=== PATIENT | female | born 1955 | race Two or more races ===

== ENCOUNTER → 2017-03-19 | Emergency (ER) | payer OTHER ==
[~2017-03-19] MED LIST: ACETAMINOPHEN 325 MG TABLET (FP) ONE; ACETAMINOPHEN 325 MG TABLET (FP) PO ONE; METOCLOPRAMIDE HCL 10 MG TABLET (FP) PO ONE
[2017-03-19 14:26] VITALS: BP 139/96; PULSE 74; TEMP 98.2; BMI 26.2
--- NOTE | 2017-03-19 15:11 | PDOC ---
History of Present Illness - General History Source: Patient Exam Limitations: No Limitations - History of Present Illness Initial Comments: 03/19/17 15:48 <Linnea Romero - Last Filed: 03/19/17 15:48> - General History Source: Patient Exam Limitations: No Limitations - History of Present Illness Initial Comments: 03/19/17 17:39 The patient is a 62-year-old woman with a significant past medical history of hypercholesterolemia who presents to the emergency department via walk-in with complaints of a subconjunctival hemorrhage. Patient stated that she woke up during the middle of the evening, two days ago, at approximately 22:30 to have a bladder movement and experienced mild right sided lateral eye pain. She did not think too much of it and asked her to place some eye drops. Her noted that the patient had experienced subconjunctival bleeding. Patient admits she was not too impressed, as she experienced the same symptoms approximately 7 years ago. Patient recalls noting associated symptoms of a frontal pounding headache that initially was intermittent but this morning it has remained constant with a rated 3/10 in severity, thus presenting to the ED. She had a similar headache last night that she took tylenol for with resolution. She does not provide any exacerbating.alleviating factors. She is not on any blood thinners. No eye pain or vision changes. No recent head injury lightheadedness, palpitations, dizziness, visual changes, No recent fever, chills, generalized weakness. No chest pain, cough shortness of breath. No abdominal pain, nausea, vomiting, diarrhea, constipation. No urinary complaints. Allergies: No Known Drug Allergies. Past Surgical History: None reported Social History: Current everyday cigarette smoker (approximately 3 cigarettes/ day). No EtOH and recreational drug use. Primary Care Physician: Dr. Umesh Tavares <Claus Krishnamurthy - Last Filed: 03/20/17 07:59> - General Chief Complaint: Eye Problem Stated Complaint: EYE PROBLEM/HEADACHE Time Seen by Provider: 03/19/17 14:54 Past History <Linnea Romero - Last Filed: 03/19/17 15:48> - Past Medical History Hypercholesterolemia: Yes - Psycho/Social/Smoking Cessation Hx Suicidal Ideation: No Smoking History: Current every day smoker Number of Cigarettes Smoked Daily: 3 Information on smoking cessation initiated: No <YessyClaus - Last Filed: 03/20/17 07:59> - Past Medical History Allergies/Adverse Reactions: Allergies Allergy/AdvReac Type Severity Reaction Status Date / Time No Known Allergies Allergy Verified 03/19/17 14:24 Home Medications: Ambulatory Orders NK [No Known Home Medication] 03/19/17 Review of Systems - Review of Systems Able to Perform ROS?: Yes Comments:: 03/19/17 15:49 <Linnea Romero - Last Filed: 03/19/17 15:48> - Review of Systems Able to Perform ROS?: Yes Comments:: 03/19/17 17:39 CONSTITUTIONAL: No reported: Fever, Chills, Diaphoresis, Generalized Weakness, Malaise, Loss of Appetite HEENT: Reported: Subconjuntival hemorrhage. No reported: Rhinorrhea, Nasal Congestion, Throat Pain, Throat Swelling, Difficulty Swallowing, Mouth Swelling, Ear Pain, Eye Pain, Visual Changes CARDIOVASCULAR: No reported: Chest Pain, Syncope, Palpitations, Irregular Heart Rate, Lightheadedness, Peripheral Edema RESPIRATORY: No reported: Cough, Shortness of Breath, SOB with Exertion, Orthopnea, Wheezing , Stridor, Hemoptysis GASTROINTESTINAL: No reported: Abdominal pain, Abdominal Distension, Nausea, Vomiting, Diarrhea, Constipation, Melena, Hematochezia GENITOURINARY: No reported: Dysuria, Frequency, Urgency, Hesitancy, Flank Pain, Genital Pain MUSCULOSKELETAL: No reported: Myalgia, Arthralgia, Joint Swelling, Back pain, Neck Pain SKIN: No reported: Rash, Itching, Pallor HEMEATOLOGIC/IMMUNOLOGIC: No reported: Easy Bleeding, Easy Bruising, Lymphadenopathy, Frequent infections ENDOCRINE: No reported: Unexplained Weight Gain, Unexplained Weight Loss, Heat Intolerance , Cold Intolerance NEUROLOGIC: Reported: Headache. No reported: Focal Weakness, Paresthesias, Vertigo, Lightheadedness, Unsteady Gait, Seizure, Mental Status Changes, Incontinence PSYCHIATRIC: No reported: Anxiety, Depression <Claus Krishnamurthy - Last Filed: 03/20/17 07:59> *Physical Exam - Vital Signs Last Vital Signs Temp Pulse Resp BP Pulse Ox 98.2 F 74 18 139/96 99 03/19/17 14:24 03/19/17 14:24 03/19/17 14:24 03/19/17 14:24 03/19/17 14:24 - Physical Exam Comments: 03/19/17 15:49 <Linnea Romero - Last Filed: 03/19/17 15:48> - Vital Signs Last Vital Signs Temp Pulse Resp BP Pulse Ox 98.2 F 74 18 139/96 99 03/19/17 14:24 03/19/17 14:24 03/19/17 14:24 03/19/17 14:24 03/19/17 14:24 - Physical Exam Comments: 03/19/17 17:39 GENERAL: The patient is awake, alert, and fully oriented, Nontoxic - in no acute distress. HEAD: Normocephalic, atraumatic. EYES: extraocular movements intact, sclera anicteric. There is a subconjunctival hemorrhage of the right eye. ENT: Normal voice, Moist mucous membranes. NECK: Normal range of motion, supple LUNGS: Breath sounds equal, clear to auscultation bilaterally. No wheezes, no rhonchi, no rales. HEART: Regular rate and rhythm, without murmur, rub or gallop. ABDOMEN: Soft, nontender, normoactive bowel sounds. No guarding, no rebound.No CVA tenderness EXTREMITIES: Normal range of motion, no edema. No clubbing or cyanosis. No cords, erythema, or tenderness. NEUROLOGICAL: No facial assymetry, Normal speech, PSYCH: Normal mood, normal affect. SKIN: Warm, Dry, normal turgor <Trevor Krishnamurthyan - Last Filed: 03/20/17 07:59> ED Treatment Course - Medications Given in the ED: ED Medications Discontinued Medications Generic Name Dose Route Start Last Admin Trade Name Hughq PRN Reason Stop Dose Admin Acetaminophen 650 mg 03/19/17 15:30 03/19/17 15:36 Tylenol - PO 03/19/17 15:31 650 mg ONCE ONE Administration Metoclopramide HCl 10 mg 03/19/17 15:28 03/19/17 15:37 Reglan - PO 03/19/17 15:29 10 mg ONCE ONE Administration <Linnea Romero - Last Filed: 03/19/17 15:48> Medical Decision Making - Medical Decision Making 03/19/17 15:28 62y F hx of hl presents wiht complain of subconjunctival hemorrhage on her R eye since she woke up to use the bathroom 2 nights ago, it has not resolved, she was using eye drops for dry eyes. pt denes any recent history of sneezing, coughing, straining, constpation. No vision changes. Pt does endorse mild intermittent headache, that is currently minimal without an yneuro symptoms. exam noted for R subconjunctival hemorrhage. pt declines blood work, which is reasonable subconj hematoma should resorb after several days tylenol for headache. will dc the pt with pmd fu return precautions were discussed I discussed the physical exam findings, ancillary test results and final diagnoses with the patient. I answered all of the patient's questions. The patient was satisfied with the care received and felt comfortable with the discharge plan and treatment plan. The patient will call their primary care physician within 24 hours to arrange follow-up and will return to the Emergency Department with any new, persistent or worsening symptoms. A portion of this note was documented by scribe services under my direction. I have reviewed the details of the note, within reason, and agree with the documentation with the following case summary and management plan written by me <Claus Krishnamurthy - Last Filed: 03/20/17 07:59> *DC/Admit/Observation/Transfer - Attestations Scribe Attestion: 03/19/17 15:49 Documentation prepared by Linnea Romero, acting as medical records auditor for Claus Krishnamurthy MD. <Linnea Romero - Last Filed: 03/19/17 15:48> - Discharge Dispostion Admit: No <Claus Krishnamurthy - Last Filed: 03/20/17 07:59> Diagnosis at time of Disposition: Subconjunctival hemorrhage, non-traumatic Qualifiers: Laterality: right Qualified Code(s): H11.31 - Conjunctival hemorrhage, right eye - Discharge Dispostion Disposition: HOME Condition at time of disposition: Improved - Referrals Referrals: Umesh Tavares [Primary Care Provider] - - Patient Instructions Printed Discharge Instructions: DI for Subconjunctival Hemorrhage Additional Instructions: Return to the emergency department immediately with ANY new, persistent or worsening symptoms. You MUST call and follow up with your doctor tomorrow for further evaluation of your symptoms. Results were discussed with you. Please make sure your doctor reviews the results of your emergency evaluation. If you had any xrays during your visit, it was read preliminarily by myself, a Radiologist will review it and if there are any additional findings we will call you. Print Language: SAO TOMEAN
== END | disposition home or self-care (01) ==
LOC: JER 14:20
DX: H11.31 Conjunctival hemorrhage, right eye (principal); F17.210 Nicotine dependence, cigarettes, uncomplicated; E78.00 Pure hypercholesterolemia, unspecified
CPT/HCPCS: 99281-25

== ENCOUNTER 2018-03-05 23:41 | Emergency (ER) | payer OTHER ==
--- NOTE | 2018-03-05 23:46 | PDOC ---
History of Present Illness <Susan Skinner - Last Filed: 03/06/18 01:04> - History of Present Illness Initial Comments: 62 year old female with PMH of HLD presenting with episode of near syncope/ unresponsiveness after having a bowel movement in the setting of two days of N/V /D. Per patient and she attempted to have a few bowel movements unsuccessfully and was straining over the toilet. Once she stood up, she felt lightheaded and called over her who assisted her to a seat at which point her eyes were still open but she was minimally responsive. The vomiting is NBNB and the diarrhea is Non-bloody. Denies chest pain, fevers, chills, abdominal pain, cough, or other symptoms. 03/05/18 23:46 <Delano Ward - Last Filed: 03/06/18 01:25> - General Chief Complaint: Syncope/Near Syncope Stated Complaint: ABD PAIN Time Seen by Provider: 03/05/18 23:45 Past History <Susan Skinner - Last Filed: 03/06/18 01:04> - Past Medical History Hypercholesterolemia: Yes - Suicide/Smoking/Psychosocial Hx Smoking History: Current every day smoker Number of Cigarettes Smoked Daily: 3 <Delano Ward - Last Filed: 03/06/18 01:25> - Past Medical History Allergies/Adverse Reactions: Allergies Allergy/AdvReac Type Severity Reaction Status Date / Time No Known Allergies Allergy Verified 03/05/18 23:51 Home Medications: Ambulatory Orders Atorvastatin Calcium [Lipitor] 20 mg PO DAILY 03/05/18 Review of Systems - Review of Systems Constitutional: No: Diaphoresis, Fever, Loss of Appetite HEENTM: No: Eye Pain, Blurred Vision Respiratory: No: Cough, Orthopnea, Shortness of Breath, SOB with Exertion Cardiac (ROS): No: Chest Pain, Edema, Irregular Heart Rate ABD/GI: Yes: Diarrhea, Nausea, Poor Appetite, Vomiting : No: Dysuria, Discharge, Frequency Musculoskeletal: No: Back Pain, Gout, Joint Pain Integumentary: No: Lesions, Lumps, Pallor, Pruritus Neurological: Yes: Weakness. No: Headache, Numbness, Paresthesia, Tingling, Tremors <Delano Ward - Last Filed: 03/06/18 01:25> *Physical Exam - Vital Signs Last Vital Signs Temp Pulse Resp BP Pulse Ox 98.2 F 83 18 147/74 98 03/05/18 23:49 03/05/18 23:49 03/05/18 23:49 03/05/18 23:49 03/05/18 23:49 - Physical Exam Comments: 03/06/18 01:04 GENERAL: Well-appearing, well-nourished. No apparent distress. HEENT: Normocephalic, atraumatic. PERRL, EOM intact. CARDIOVASCULAR: Normal S1, S2. Regular rate and rhythm. (+) Mild systolic murmur. PULMONARY: Clear to auscultation bilaterally. ABDOMEN: Soft, non-distended, non-tender. EXTREMITIES: Normal ROM in all four extremities. No gross deformities. SKIN: Warm, dry. No rash NEUROLOGICAL: No focal neurological deficits. <Susan Skinner - Last Filed: 03/06/18 01:04> - Physical Exam General Appearance: Yes: Nourished, Appropriately Dressed. No: Apparent Distress HEENT: positive: EOMI, LUCRETIA, Normal ENT Inspection, Normal Voice Neck: positive: Trachea midline, Normal Thyroid, Supple. negative: Tender, Rigid Respiratory/Chest: positive: Lungs Clear, Normal Breath Sounds. negative: Chest Tender, Respiratory Distress, Accessory Muscle Use Cardiovascular: positive: Regular Rhythm, Regular Rate Gastrointestinal/Abdominal: positive: Normal Bowel Sounds, Flat, Soft. negative : Tender Musculoskeletal: positive: Normal Inspection. negative: CVA Tenderness, Decreased Range of Motion Extremity: positive: Normal Capillary Refill, Normal Inspection, Normal Range of Motion. negative: Tender Integumentary: positive: Normal Color, Dry, Warm Neurologic: positive: gm video II-XII NML intact, Fully Oriented, Alert, Normal Mood/ Affect, Normal Response, Motor Strength 5/5, Finger to Nose. negative: Facial Droop, Numbness, Sensory Deficit, Confused, Depressed Affect <Delano Ward - Last Filed: 03/06/18 01:25> ED Treatment Course - LABORATORY CBC & Chemistry Diagram: 03/06/18 00:01 03/06/18 00:01 - ADDITIONAL ORDERS Additional order review: Laboratory Results 03/06/18 03/06/18 00:01 00:01 PT with INR 10.20 INR 0.90 Sodium 142 Potassium 4.2 Chloride 107 Carbon Dioxide 28 Anion Gap 7 L BUN 16 Creatinine 1.1 H Creat Clearance w eGFR 50.01 Random Glucose 101 Calcium 8.7 Total Bilirubin 0.3 AST 22 ALT 12 Alkaline Phosphatase 69 Creatine Kinase 108 Troponin I < 0.02 Total Protein 7.2 Albumin 3.9 03/06/18 00:01 RBC 4.22 MCV 93.1 MCHC 32.9 RDW 13.0 MPV 8.4 Neutrophils % 86.7 H Lymphocytes % 6.5 L Monocytes % 6.0 Eosinophils % 0.4 Basophils % 0.4 - Medications Given in the ED: ED Medications Discontinued Medications Generic Name Dose Route Start Last Admin Trade Name Freq PRN Reason Stop Dose Admin Sodium Chloride 1,000 ml 03/06/18 00:49 03/06/18 00:57 Normal Saline - IV 03/06/18 00:50 1,000 ml ONCE ONE Administration <Susan Skinner - Last Filed: 03/06/18 01:04> - LABORATORY CBC & Chemistry Diagram: 03/06/18 00:01 03/06/18 00:01 <Delano Ward - Last Filed: 03/06/18 01:25> Medical Decision Making - Medical Decision Making 62 year old female with episode of weakness/ pre-syncope in the setting of N/V/ D for the past few days. Patient was well [id number] here with normal EKG (Rate 101, [place] 126, QRS 64, QTc 448, normal axis, no ST elevations), labs, Head CT and she felt better after 1 L NS. Normal gait and motor function. Will DC home with ortho follow up for an unrelated shoulder issue. 03/06/18 01:17 <Delano Ward - Last Filed: 03/06/18 01:25> *DC/Admit/Observation/Transfer <Susan Skinner - Last Filed: 03/06/18 01:04> - Discharge Dispostion Decision to Admit order: No <Delano Ward - Last Filed: 03/06/18 01:25> Diagnosis at time of Disposition: Vasovagal near syncope - Discharge Dispostion Disposition: HOME Condition at time of disposition: Improved - Referrals Referrals: Umesh Tavares [Primary Care Provider] - Carlos Hunter MD [Staff Physician] - - Patient Instructions Printed Discharge Instructions: DI for Syncope in Adults (Fainting) Additional Instructions: Estabas mareado porque tu nivel de lquido corporal era bajo. Necesita beber ray agua y asegurarse de comer alimentos. Tenga cuidado al caminar mikki los prximos kapadia y tmese ko tiempo para levantarse de toni posicin de ubicacin o de ubicacin. Por favor, consulte a ko mdico de atencin primaria esta semana. Por favor, moises al Dr. Hunter para ko dolor en el hombro. Regrese a la vita de emergencias si tiene algn sntoma nuevo o empeoramiento. Print Language: BELARUSIAN - Post Discharge Activity
[2018-03-05 23:53] VITALS: BP 147/74; PULSE 83; TEMP 98.2; BMI 28.9
[2018-03-06 00:09] LABS: BASO % 0.4 % (0-2.0); EOS % 0.4 % (0-4.5); HEMATOCRIT 39.3 % (32.4-45.2); HEMOGLOBIN 12.9 GM/dL (10.7-15.3); LYMPH % 6.5 % (8-40); MCH 30.6 pg (25.7-33.7); MCHC 32.9 g/dl (32.0-36.0); MEAN CELL VOLUME 93.1 fl (80-96); MEAN PLT VOLUME 8.4 fl (7.5-11.1); NEUT % 86.7 % (42.8-82.8); PLATELET COUNT 265 K/MM3 (134-434); RBC 4.22 M/mm3 (3.60-5.2)
--- NOTE | 2018-03-06 00:13 | PDOC ---
Attending Attestation - HPI HPI: 03/06/18 01:14 The patient is a 62 year old female with a significant PMH of HLD who presents to the emergency department with an episode of near syncope during a bowel movement, The patient states she was having a bowel movement when she started feeling diaphoretic and lightheaded but denies straining during the bowel movement. The patient stood up, felt lightheaded, and was caught by . The patient reports nausea and one episode of non-bloody, non-bilious vomiting after the near syncopal episode. Patient denies sick contact or recent travel. The patient denies palpitations, chest pain, shortness of breath, headache and dizziness. Denies fever, chills, diarrhea and constipation. Denies dysuria, frequency, urgency and hematuria. Allergies: NKA Past surgical history: None reported. Social history: No reported alcohol,drug, or cigarette use. PCP: Dr. Tavares at [facility] - Physicial Exam PE: 03/06/18 01:15 GENERAL: Well-appearing, well-nourished. No apparent distress. HEENT: Normocephalic, atraumatic. PERRL, EOM intact. CARDIOVASCULAR: Normal S1, S2. Regular rate and rhythm. (+) Mild systolic murmur. PULMONARY: Clear to auscultation bilaterally. ABDOMEN: Soft, non-distended, non-tender. EXTREMITIES: Normal ROM in all four extremities. No gross deformities. SKIN: Warm, dry. No rash NEUROLOGICAL: No focal neurological deficits. <Susan Skinner - Last Filed: 03/06/18 01:14> - Resident Resident Name: Delano Ward - ED Attending Attestation I have performed the following: I have examined & evaluated the patient, The case was reviewed & discussed with the resident, I agree w/resident's findings & plan, Exceptions are as noted - Medical Decision Making 03/06/18 01:05 A portion of this note was written by my scribe, under my supervision. Vital Signs Temp Pulse Resp BP Pulse Ox 98.2 F 83 18 147/74 98 03/05/18 23:49 03/05/18 23:49 03/05/18 23:49 03/05/18 23:49 03/05/18 23:49 62-year-old female with history of hyperlipidemia presents with likely vasovagal syncope. The patient has been having some nausea, vomiting and diarrhea since yesterday. Denies sick contacts or recent travels. No fevers. Today, the patient was straining attempting to move her bowels when she had a brief syncopal episode. Caught by her . No chest pain or short of breath. Patient denies abdominal pain reports feeling well now. Denies any prior cardiac history. We'll obtain a workup including labs. If workup is unremarkable, the patient to be discharged home with follow-up with PMD. The patient does have a history of chronic left shoulder pain is requesting referral to orthopedist. We'll give referral to an orthopedist. 03/06/18 01:29 CBC, BMP 03/06/18 00:01 03/06/18 00:01 CMP Sodium 142 mmol/L (136-145) 03/06/18 00:01 Potassium 4.2 mmol/L (3.5-5.1) 03/06/18 00:01 Chloride 107 mmol/L (98-107) 03/06/18 00:01 Carbon Dioxide 28 mmol/L (21-32) 03/06/18 00:01 Anion Gap 7 (8-16) L 03/06/18 00:01 BUN 16 mg/dL (7-18) 03/06/18 00:01 Creatinine 1.1 mg/dL (0.55-1.02) H 03/06/18 00:01 Creat Clearance w eGFR 50.01 (>60) 03/06/18 00:01 Random Glucose 101 mg/dL (74-106) 03/06/18 00:01 Calcium 8.7 mg/dL (8.5-10.1) 03/06/18 00:01 Total Bilirubin 0.3 mg/dL (0.2-1.0) 03/06/18 00:01 AST 22 U/L (15-37) 03/06/18 00:01 ALT 12 U/L (12-78) 03/06/18 00:01 Alkaline Phosphatase 69 U/L (45-117) 03/06/18 00:01 Creatine Kinase 108 IU/L (26-192) 03/06/18 00:01 Troponin I < 0.02 ng/ml (0.00-0.05) 03/06/18 00:01 Total Protein 7.2 g/dl (6.4-8.2) 03/06/18 00:01 Albumin 3.9 g/dl (3.4-5.0) 03/06/18 00:[address] unremarkable. Pt reports feeling much better. <Moe Gold - Last Filed: 03/06/18 01:29> Heart Score/ECG Review #1 ECG reviewed & interpreted by me at: 00:00 03/06/18 00:13 NSR 101, no std/kulwinder, T wave flat III, V3-V5, QTC 448 msec, no brugada, Q wave V1 -V2, no HOCM <Moe Gold - Last Filed: 03/06/18 01:29>
[2018-03-06 00:27] LABS: INR 0.9 (0.82-1.09); PROTHROMBIN TIME (PATIENT) 10.2 SEC (9.7-13.0)
[2018-03-06 00:46] LABS: ALBUMIN 3.9 g/dl (3.4-5.0); ANION GAP 7 (8-16); BILIRUBIN,TOTAL 0.3 mg/dL (0.2-1.0); BLOOD UREA NITROGEN 16 mg/dL (7-18); CALCIUM 8.7 mg/dL (8.5-10.1); CHLORIDE 107 mmol/L (98-107); CO2 28 mmol/L (21-32); CREATININE 1.1 mg/dL (0.55-1.02); GLUCOSE,RANDOM 101 mg/dL (74-106); POTASSIUM 4.2 mmol/L (3.5-5.1); SGOT/AST 22 U/L (15-37); SODIUM 142 mmol/L (136-145); TOT PROT 7.2 g/dl (6.4-8.2)
[2018-03-06] MEDS ORDERED: SODIUM CHLORIDE 0.9% 500 ML INFUS.BAG IV ONE (00:49)
[2018-03-06 00:59] LABS: ALK PHOS 69 U/L (45-117); SGPT/ALT 12 U/L (12-78)
--- NOTE | 2018-03-06 08:36 | EKG ---
Test Reason : Blood Pressure : / mmHG Vent. Rate : 101 BPM Atrial Rate : 101 BPM P-R Int : 126 ms QRS Dur : 064 ms QT Int : 346 ms P-R-T Axes : 047 016 008 degrees QTc Int : 448 ms SINUS TACHYCARDIA POSSIBLE LEFT ATRIAL ENLARGEMENT LOW VOLTAGE QRS POOR R WAVE PROGRESSION NONSPECIFIC ST AND T WAVE ABNORMALITY ABNORMAL ECG NO PREVIOUS ECGS AVAILABLE BASELINE ARTIFACT CLINICAL CORRELATION IS RECOMMENDED Confirmed by ESTEPHANIA MOONEY, TRENA ([id number]) on 03/06/2018 8:36:39 AM Referred By: Confirmed By:TRENA BEST MD
== END 2018-03-06 01:48 | disposition home or self-care (01) ==
LOC: JER 23:41
DX: R55 Syncope and collapse (principal); E78.5 Hyperlipidemia, unspecified; R01.1 Cardiac murmur, unspecified
CPT/HCPCS: 36415; 70450-TC; 80053; 82550; 84484; 85025; 85610; 93005; 93010; 99283-25

== ENCOUNTER 2023-10-30 10:22 | Emergency (ER) | payer OTHER ==
[2023-10-30 10:26] VITALS: BP 144/68; PULSE 83; RESP 18; TEMP 98.2; BMI 25.6
[2023-10-30] MEDS ORDERED: ACETAMINOPHEN 500 MG TABLET (FP) PO ONE (11:00)
== END 2023-10-30 12:50 | disposition home or self-care (01) ==
LOC: JERFT 10:22 → JER 10:22 → JERFT 12:50
DX: S82.401A Unspecified fracture of shaft of right fibula, initial encounter for closed fracture (principal); M25.571 Pain in right ankle and joints of right foot; R22.41 Localized swelling, mass and lump, right lower limb; W10.9XXA Fall (on) (from) unspecified stairs and steps, initial encounter; X50.1XXA Overexertion from prolonged static or awkward postures, initial encounter
CPT/HCPCS: 73610-TC-RT-FY; 73630-TC-RT-FY; 99283-25

== ENCOUNTER 2024-10-17 19:19 | Emergency (ER) | payer OTHER ==
[2024-10-17 19:41] VITALS: BP 160/75; PULSE 77; RESP 24; TEMP 98; BMI 26.6
[2024-10-17] MEDS ORDERED: ACETAMINOPHEN 325 MG TABLET (FP) ONE (20:24)
[2024-10-17] MEDS: ACETAMINOPHEN 500 MG TABLET (FP) PO ONE (20:30)
== END 2024-10-17 21:01 | disposition home or self-care (01) ==
LOC: JER 19:19
DX: J18.9 Pneumonia, unspecified organism (principal); R50.9 Fever, unspecified; R05.9 Cough, unspecified; Z20.822 Contact with and (suspected) exposure to COVID-19
CPT/HCPCS: 0241U-QW; 71046-TC-FY; 99284-25